=== PATIENT | male | born 1945 | race Caucasian/White ===

== ENCOUNTER 2021-09-17 16:44 | Emergency (ER) | payer MEDICARE, BC ==
[2021-09-17 19:17] VITALS: BP 122/89; PULSE 78
== END 2021-09-17 19:05 | disposition home or self-care (01) ==
LOC: DL.ED 16:44
DX: S50.11XA Contusion of right forearm, initial encounter (principal); E78.00 Pure hypercholesterolemia, unspecified; Z88.1 Allergy status to other antibiotic agents; Z79.82 Long term (current) use of aspirin; Z79.899 Other long term (current) drug therapy; W55.22XA Struck by cow, initial encounter
CPT/HCPCS: 73090-RT; 99283